=== PATIENT | female | born 1985 | race Caucasian/White ===

== ENCOUNTER 2020-02-25 05:00 | Day surgery (SDC) | payer MEDICAID ==
[2020-02-24 10:14] LABS: HEMATOCRIT 42.6 % (36.0-48.0); HEMOGLOBIN 13.7 g/dL (12-16); MCH 29.7 pg (26.0-34.0); MCHC 32.2 g/dL (31.0-37.0); MCV 92.2 fL (80.0-100.0); MEAN PLATELET VOLUME 9.6 fL (7.4-10.4); RBC 4.62 10x6/uL (4.00-5.40); RDW 12.5 % (11.5-14.5); WBC 6.8 10x3/uL (4.8-10.8)
[~2020-02-25] VITALS: Ht 236.2 cm; Wt 54.4 kg
[~2020-02-25 05:00] MED LIST: METOPROLOL TART25 MG PO; ZOLOFT100 MG PO
[2020-02-25 05:35] VITALS: BP 120/71; Ht 236.2 cm; Wt 54.4 kg
[2020-02-25] MEDS ORDERED: PERCOCET 5-3251 TAB PO (08:11)
[2020-02-25] MEDS ORDERED: TORADOL10 MG PO (08:11)
[2020-02-25] MEDS ORDERED: ZOFRAN ODT4 MG/UDTAB PO (08:12)
--- NOTE | 2020-02-25 08:52 | NUR ---
0846-REC'D FROM RR. AWAKE AND ALERT,VSS.DENIES PAIN. TOLERATING ICE WATER. ICE PACK TO SHOULDER AND SLING IN PLACE,ELEVATED ON PILLOW. REVIEWED DISCHARGE CRITERIA. CL IN EASY REACH
--- NOTE | 2020-02-25 09:21 | NUR ---
0915-FULL LIQUID TRAY TO ROOM. VSS. REPORTS PAIN 5/10 TO RIGHT SHOULDER
--- NOTE | 2020-02-25 13:19 | NUR ---
1010-DISCHARGE CRITERIA MET. REMOVED IV WITH CATH INTACT. DISPOSED INTO SHARPS,COVERED SITE WITH GUAZE,SECURED WITH MEDIPORE TAPE. REVIEWED POST OPERATIVE INSTRUCTIONS AND FOLLOW UP APPOINTMENT. VSS. PAIN WNL FOR PROCEDURE. ESCORTED OUT VIA W/C WITH BOYFRIEND AWAITING TO DRIVE HOME
--- NOTE | 2020-02-25 14:45 | OP ---
PATIENT NAME: CLARISSA PAIGE MEDICAL RECORD: [id number] :87 LOCATION:D.OPS ADMISSION DATE: SURGEON: MELVIN OG DO DATE OF OPERATION: 02/25/2020 PROCEDURE PERFORMED: Right shoulder arthroscopy with lysis of adhesions, subacromial bursectomy and manipulation under anesthesia. PREOPERATIVE DIAGNOSES: Subacromial bursitis and adhesive capsulitis. POSTOPERATIVE DIAGNOSES: Subacromial bursitis and adhesive capsulitis and Hazelton complex. INDICATIONS: Ms. Paige is a 34-year-old female who has had increasing right shoulder pain and lack of mobility for over a year now. She had been on 6 months of physical therapy and it was felt that she was tired of dealing with it and it was getting worse and worse. She has been able to move her right shoulder less and less and she is right handed. She said it was somewhat of a problem for her. I informed her that we could wait, but it may continue to scar down and she may lose more and more motion. Having known that, I deemed it would be appropriate to do a lysis of adhesions and manipulation. She was okay with that and was aware of the risk of infection, bleeding, continued scarring of the capsule and continue loss of motion if she does not do a therapy, damage to nerves and vessels in the area and continued pain. She was aware of all that and signed the consent. She did have on MRI thickened capsule, which did indicate adhesive capsulitis. SURGEON: Melvin Og DO DESCRIPTION OF PROCEDURE: I was assisted by Nabor Helm, certified midwife. She received a block by anesthesia in the preoperative area and taken to operative suite, placed in the left lateral decubitus position with the right arm up. She was given 900 mg of clindamycin preoperatively. Right shoulder was then prepped and draped in sterile fashion. She was sedated and LMA was placed. Once she was prepped and draped, timeout was performed, everyone was agreeance with the correct side, site, patient and procedure. We then began by inflating the shoulder joint, which was very tight with 50 mL of normal saline. I then entered the shoulder joint through the posterior portal by making with an 11-blade scalpel. The shoulder was inflated with saline through an 18-gauge spinal needle. I then into the shoulder joint noticed a Hazelton complex as well as extremely thick capsule on the anterior aspect in the rotator interval. The spinal needle was then used to establish the anterior portal and 11-blade scalpel. We then brought in the trocar and a burner. I took out the anterior capsule and the rotator interval, opened that up, inspected the Hazelton complex and the rest of the shoulder. There were no labral tear. There was no subscap tear and no supraspinatus or infraspinatus tear. There were no loose bodies in the joint and the cartilage was in good shape. Once the adhesions were taken down on the rotator interval, I went to the subacromial space, there was extremely large amount of bursa and it was inflamed. The lateral portal was then established using 18-gauge spinal needle and 11-blade scalpel. The shaver was then brought in and resected the bursa there. I inspected the rotator cuff on the bursal side. There were no tears seen in it. I then removed the scope and proceeded to do a manipulation first with forward flexion up to 180 and then abduction to 90 up to 100 and then internal rotation and external rotation with the shoulder abducted and then with OPERATIVE REPORT [id number] CLARISSA PAIGE the elbow at the side, 0 degrees of abduction, external rotation to 90, did have very good range of motion with that and no problems doing it. The portal sites were then closed by Nabor Helm, certified surgical certified surgical first assistant with 4-0 Monocryl in an inverted interrupted fashion and Dermabond glue placed on it and dressed with Telfa and Tegaderm. She was awakened and taken to recovery in stable condition. ESTIMATED BLOOD LOSS: Minimal. COMPLICATIONS: None. TRANSINT:[id number] Voice Confirmation ID: [id number] DOCUMENT ID: [id number] MELVIN OG DO at 1445 CC: [id number] DICTATION DATE: 02/25/20822 LINEN TECH: 02/25/20 1346 [facility] 02/25/20 [id number] [place] [address]
== END 2020-02-25 10:10 | disposition home or self-care (01) ==
LOC: D.OPS 05:00
PROVIDERS: Anesthesiology; ATTEND Orthopaedic Surgery
DX: M75.51 Bursitis of right shoulder (principal); M75.01 Adhesive capsulitis of right shoulder; M25.511 Pain in right shoulder